=== PATIENT | female | born 1960 | race Caucasian/White ===

== ENCOUNTER 2018-11-05 18:26 | Emergency (ER) | payer MEDICARE, MEDICAID, SELFPAY ==
[2018-11-05] VITALS (7 sets, daily range): BP systolic 102–153; BP diastolic 59–81; PULSE 66–79; RESP 16; TEMP 36.6; O2SAT 93–96; BMI 34.4
--- NOTE | 2018-11-05 18:42 | EKG12_ITS ---
Test Reason : CHEST OTHER Blood Pressure : / mmHG Vent. Rate : 071 BPM Atrial Rate : 071 BPM P-R Int : 150 ms QRS Dur : 086 ms QT Int : 398 ms P-R-T Axes : 064 061 061 degrees QTc Int : 432 ms Normal sinus rhythm Normal ECG Confirmed by JULIA MILLER, JENNIFER ([id number]), metropolitan editor LAURYN SHEFFIELD ([id number]) on 11/09/2018 11:47:54 AM Referred By: JOHN Confirmed By:JENNIFER DUMONT MD
--- NOTE | 2018-11-05 18:43 | ED.VISSUMM ---
- ER Visit Summary Date of Service: 11/05/18 Chief Complaint: Chest pain and bilateral shoulder pain History of Present Illness: The patient is a 58 F who presents with bilateral shoulder and chest pain that has been getting worse over the past few days. Patient describes the pain is sharp. Patient states she has had pain in her right shoulder for a few weeks. Patient states that over the last few days she is developed pain in her chest and left shoulder. Patient also admits to pain in her neck. Patient states her pain is worse with movement and deep breathing. Patient states the pain improves somewhat with heating pad. Patient does admit to some paresthesias in her right arm. Patient also states she had some lightheadedness. Physical Examination: Vital signs are stable. Patient is afebrile. Patient is in no acute distress. Oral mucosa is pink and moist. Neck is supple. Trachea is midline. There is no JVD noted. Heart was regular rate and rhythm. Lungs are clear and equal bilateral. Abdomen is soft. Bowel sounds are normal. There is no tenderness. There is no guarding noted. Skin is warm dry. Cranial nerves II through XII are intact. There are no focal motor or sensory deficits noted. The remaining physical exam is within normal limits. Test Results: CBC and basic metabolic profile were obtained and were normal. Troponin was normal. EKG showed normal sinus rhythm with a rate of 71. There are no acute ST or T wave changes. Portable chest x-ray was normal. Emergency Department Course and Treatment: Patient was given aspirin and sublingual nitroglycerin here. Patient felt better on reevaluation. Patient has a HEART score of 2. Patient was advised that this is low risk for acute cardiac event. Patient was instructed to follow-up with her primary care physician as an outpatient. Patient understood and was agreeable with the plan. All questions were answered. Disposition: Discharge home Impression: Chest pain This note was generated with [employer] dictation software. It may contain incorrect words, spelling, and punctuation that were not noted in review of the chart prior to signing ED Disposition - Plan for ED Patient: Disposition: Home or Assisted Living Diagnosis: Chest pain of uncertain etiology Instructions: ED Chest Pain Atypical Unkn Cause Referrals: Sergio Tamayo DO [Primary Care Provider] - 3-5 Days
[2018-11-05] MEDS: Aspirin 81 MG TAB.CHEW 324 MG PO (18:58)
--- NOTE | 2018-11-05 19:10 | RAD_ITS ---
STUDY: X-RAY CHEST REASON FOR EXAM: Female, 58 years old. Shoulder and chest pain TECHNIQUE: Single AP portable view of the chest. COMPARISON: None. FINDINGS: The lungs are clear and expanded. There is no demonstrated pleural abnormality. Normal size heart. Normal mediastinum and rose. Normal visualized pulmonary arteries. Normal visualized aortic arch and descending thoracic aorta. Normal visualized thoracic spine. Normal visualized ribs, clavicles, and shoulders. There is no demonstrated abnormality of the visualized soft tissue structures of the upper abdomen. RAD/Chest PA and Lateral IMPRESSION: Normal x-ray examination of the chest. Electronically Signed: Matheus Fleming MD at 19:44 EDT , Service support ,
[2018-11-05 19:19] LABS: Absolute Lymphocyte Count 5.42 X10^3/ul (0.83-4.51); Absolute Neutrophil Count 6.5 X10^3/uL (2.0-7.7); Basophil# 0.03 X10^3/uL; Basophil% 0.2 % (0-1); Eosinophil# 0.26 X10^3/uL; Hemoglobin 14.6 g/dl (12.0-15.0); Lymphocyte # 5.42 X10^3/ul (4.0); Lymphocyte % 41.2 % (19-41); Mean Corp Hgb Conc 32.4 g/gl (32-36); Mean Corpuscular Hgb 29.5 pg (27.0-32.0); Mean Corpuscular Volume 90.9 fL (81-99); Mean Platelet Vol. 9.3 fl (6.2-12.0); Monocyte# 0.95 X10^3/uL; Monocyte% 7.2 % (0-10); Neutrophil # 6.47 X10^3/uL (2.7-7.7); Neutrophil % 49.2 % (47-70); Platelet Count 355 K/mm3 (150-450); RBC Distribution Width CV 13.6 % (11.6-14.6); RBC Distribution Width SD 44.1 fl (35.1-43.9); Red Blood Count 4.95 M/mm3 (4.2-5.4); White Blood Count 13.2 K/mm3 (4.4-11.0)
[2018-11-05 19:23] LABS: Differential Indicated SCAN CRITERIA MET; POSITIVE COUNT NO; POSITIVE DIFFERENTIAL YES; POSITIVE MORPHOLOGY NO
[2018-11-05 19:37] LABS: Anion Gap 7 (5-15); BUN 9 mg/dL (7-18); BUN/Creat Ratio 12.6 RATIO (10-20); Calcium,Total 9.4 mg/dL (8.5-10.1); Chloride 105 mmol/L (98-107); Creatinine, Serum 0.71 mg/dL (0.55-1.02); EST Glomerular Filtration Rate 90 mL/min (>60); Est Glom Filt Rate - Afr Amer 108 mL/min (>60); Estimated Creatinine Clearance 94.54 ml/min; Glucose 143 mg/dL (74-106); Potassium 3.8 mmol/L (3.5-5.1); Sodium Level 141 mmol/L (136-145)
[2018-11-05 20:01] LABS: Anisocytosis RARE; Platelet Estimate ADEQUATE (ADEQ)
[2018-11-05 20:02] LABS: Macrocytosis RARE
== END 2018-11-05 21:32 | disposition home or self-care (01) ==
PROVIDERS: Emergency Provider Emergency Medicine; Family Provider Family Medicine; PCP Family Medicine
DX: R07.9 Chest pain, unspecified (principal); Z72.0 Tobacco use
CPT/HCPCS: 71046; 80048; 84484; 85025; 93005; 99284; A4216

== ENCOUNTER 2020-05-31 12:39 | Emergency (ER) | payer MEDICARE, MEDICAID, SELFPAY ==
[2018-11-05 18:27] VITALS: BMI 34.4
[2020-05-31 12:40] VITALS: BP 181/85; PULSE 70; RESP 20; TEMP 37.2; O2SAT 98; BMI 38.2
[2020-05-31 12:45] VITALS: BP 173/90; PULSE 70; RESP 20; O2SAT 95
--- NOTE | 2020-05-31 13:00 | ED.VIS.FALL ---
History of Present Illness Chief Complaint: Fall Informant: Patient Occurred: Today - JPTA Fall from Height (ft): 4 Location: L shoulder, left ribs, left knee (mild there) Quality of Pain: Aching Current Severity: Severe Maximum Severity: Severe Worsened by: movement, breathing Relieved by: nothing Associated Symptoms: Inability to ambulate - couldn't get up due to pain in ribs, not legs. Negative for: Parasthesias, Weakness, Loss of function, Loss of consciousness, Amnesia Narrative: Patient said she was on her porch holding the leash of her 90 pound pitbull dog who suddenly chased after a squirrel pulled her down through the railing of her porch, she and the really both fell down to the ground around 4 feet. She fell onto her left side, injuring her shoulder and her ribs severely, sustaining a minor abrasion to her left knee she states it is a little sore but that is not bothering her. She denies any other pain or injury. No abdominal pain, vomiting, hip pain. She did not hit her head or lose consciousness. She is on no anticoagulants. - Past Medical History (1) Diabetes mellitus Status: Chronic (2) HTN (hypertension) Status: Chronic (3) Chronic low back pain Status: Chronic (4) Peripheral neuropathy Status: Chronic (5) Anxiety and depression Status: Chronic Past Medical History - Allergies and Home Meds Allergies/Adverse Reactions: Allergies acetaminophen [From Vicodin] Adverse Reaction (Verified 05/31/20 12:39) Nausea cortisone [Cortisone] Adverse Reaction (Verified 05/31/20 12:39) Other hydrocodone bitartrate [From Vicodin] Adverse Reaction (Verified 05/31/20 12:39) Nausea morphine Adverse Reaction (Verified 05/31/20 12:39) Nausea Primary Care Physician: Sergio Tamayo DO [Primary Care Provider] - Lives: With Family Smoking Status: Current every day smoker Review of Systems General: Denies: Chills, Fever, Sweats Eyes: Denies: Visual changes - bilaterally, Diplopia ENT: Denies: Rhinorrhea, Sore throat Cardiovascular: Reports: Chest pain - ribcage. Denies: Palpitations Respiratory: Reports: Dyspnea - due to left rib pain. Denies: Cough, Dyspnea on exertion Gastrointestinal: Denies: Abdominal pain, Nausea, Vomiting, Diarrhea, Melena, Hematochezia Genitourinary: Denies: Dysuria, Hematuria, Frequency Musculoskeletal: Reports: Back pain, Extremity Pain - L shoulder > left knee. Denies: Neck pain Skin: Reports: Abrasions. Denies: Rash Neurological: Denies: Headache, Weakness, Numbness Physical Exam Vital Signs/Narrative: Vital Signs Temp Pulse Resp BP Pulse Ox 05/31/20 12:45 70 20 H 173/90 H 95 05/31/20 12:40 99.0 F 70 20 H 181/85 H 98 Inital Vital Signs reviewed: Yes General: Well nourished, Well developed, Obese, - - NAD Head: Normocephalic, Atraumatic Eyes: Perrl, EOMI ENT: No trauma. Negative for: Nasal trauma Neck: Nontender, Full ROM, - - trachea midline. Negative for: Spinal Tenderness Cardiovascular: Regular rate, Regular rhythm, No murmurs Respiratory: No distress, CTA bilaterally, Chest tenderness - throughout left inframammary ribcage, except not tender at sternum or spine. no crepitance or deformity. equal BS bilaterally. Abdomen: Soft, Nontender, Nondistended, Normal bowel sounds Back: Nontender. Negative for: Spinal Tenderness Extremeties: Tender to palpation diffusely throughout the left proximal humerus, limited range of motion of the shoulder due to pain but no deformity. Nontender clavicle and acromioclavicular joint. Full range of motion throughout all other joints including the left lower extremity. Nontender bones of the left knee, no effusion. Pelvis stable to AP compression, no tenderness. Skin: Normal color, No rash, Trauma - Minor abrasion to the left lateral proximal knee area. No signs of any trauma to the left shoulder or chest wall clinically. Neurological: Alert, Oriented x3, Cranial nerves II-XII grossly intact, Normal Strength, Normal Sensation Psychological: - - Anxious mildly Diagnostic/Tx/Re-eval Clinical Impression(s) from Imaging Studies Ribs w/Chest X-Ray 05/31/20 13:25 IMPRESSION: RIBS: Nondisplaced fractures of the left sixth seventh and eighth ribs anterolaterally. CHEST: Normal x-ray examination of the chest. Electronically Signed: Lawson Solorzano, at 14:11 EDT , Service support , Shoulder X-Ray 05/31/20 13:25 IMPRESSION: Degenerative changes of the acromioclavicular joint. Calcific tendinitis. Electronically Signed: Lawson Solorzano, at 14:14 EDT , Service support , - Medical Decision Making Pain is improved after oxycodone 10 mg, pretreated with Zofran. X-rays confirm several rib fractures on the left side without pneumothorax or evidence of a pulmonary contusion. Left shoulder interpretation is as above. On reevaluation of patient, she cannot forward flex her upper arm or abduct very much at all before returning to neutral position and saying that her shoulder hurts too bad to move it. There is no suggestion of a deformity, and clinically I do not think she has a dislocation. She either just bruised or strained it, she could have injured the rotator cuff, or she has a small occult chip fracture at the glenoid or elsewhere. She does have some evidence of calcific tendinitis and the rotator which is not acute. She will be placed in a sling and given orthopedic follow-up if she does not have improvement after several days to a week. She is comfortable with that plan. We also discussed reasons to return and signs/symptoms of pneumothorax which she does not have at this time. ED Disposition - Plan for ED Patient: Disposition: Home or Assisted Living Diagnosis: Injury resulting from fall from height, Ribs, multiple fractures, Injury of left shoulder Instructions: ED Rib Fx, ED Shoulder Pain Uncertain Cause, ED Tendinitis Calcific Prescriptions: Oxycodone HCl/Acetaminophen [Percocet 5/325] 1 - 2 tablet PO Q6H PRN PRN 3 Days #18 tablet PRN Reason: Pain Transmission Status: Received by [id number] Referrals: Sergio Tamayo DO [Primary Care Provider] - 1 Week if not improving Morteza Lin DO [STAFF PHYSICIAN] - 1 Week if not improving (for shoulder)
[2020-05-31] MEDS: Ondansetron ODT 4 MG Tablet 8 MG PO (13:11)
[2020-05-31] MEDS: oxyCODONE 5 MG Tablet 10 MG PO (13:15)
--- NOTE | 2020-05-31 13:25 | RAD_ITS ---
STUDY: X-RAY - LEFT SHOULDER REASON FOR EXAM: Female, 59 years old. Pain due to fall TECHNIQUE: 2 view(s) of the shoulder. COMPARISON: None. FINDINGS: Normal glenohumeral articulation. There is degenerative arthrosis of the acromioclavicular joint without inferior osseous spur formation. Normal acromion. Normal humeral head and visualized proximal humerus. There is periarticular soft tissue calcification consistent with a calcific tendinitis. Normal visualized pulmonary apex. RAD/Shoulder min 2 Views IMPRESSION: Degenerative changes of the acromioclavicular joint. Calcific tendinitis. Electronically Signed: Lawson Solorzano, at 14:14 EDT , Service support ,
--- NOTE | 2020-05-31 13:25 | RAD_ITS ---
STUDY: X-RAY - UNILATERAL RIBS ( LEFT ) WITH CHEST REASON FOR EXAM: Female, 59 years old. pt. fell, pain is at mid left lateral ribs TECHNIQUE - RIBS: 4 view(s) of the ribs. TECHNIQUE - CHEST: Single PA view of the chest. COMPARISON: Comparison is made with prior chest radiograph dated 11/05/2018. FINDINGS - RIBS: Nondisplaced fractures of the anterolateral aspects of the left sixth seventh and eighth ribs anterolaterally. FINDINGS - CHEST: Scattered calcified granulomas. There is no demonstrated pleural abnormality. Normal size heart. Normal mediastinum and rose. Normal visualized pulmonary arteries. Normal visualized aortic arch and descending thoracic aorta. Normal visualized thoracic spine. Normal visualized ribs, clavicles, and shoulders. There is no demonstrated abnormality of the visualized soft tissue structures of the upper abdomen. RAD/Ribs Uni Min 3V w/PA Chest IMPRESSION: RIBS: Nondisplaced fractures of the left sixth seventh and eighth ribs anterolaterally. CHEST: Normal x-ray examination of the chest. Electronically Signed: Lawson Solorzano, at 14:11 EDT , Service support ,
== END 2020-05-31 15:24 | disposition home or self-care (01) ==
PROVIDERS: Emergency Provider Emergency Medicine; PCP Family Medicine
DX: S22.42XA Multiple fractures of ribs, left side, initial encounter for closed fracture (principal); S49.92XA Unspecified injury of left shoulder and upper arm, initial encounter; S80.212A Abrasion, left knee, initial encounter; W17.89XA Other fall from one level to another, initial encounter; Y93.9 Activity, unspecified; Y92.9 Unspecified place or not applicable; E66.9 Obesity, unspecified; I10 Essential (primary) hypertension; F41.9 Anxiety disorder, unspecified; F32.9 Major depressive disorder, single episode, unspecified; E11.42 Type 2 diabetes mellitus with diabetic polyneuropathy; M54.5 Low back pain; G89.29 Other chronic pain; Z79.4 Long term (current) use of insulin; Z79.82 Long term (current) use of aspirin; Z79.899 Other long term (current) drug therapy; F17.200 Nicotine dependence, unspecified, uncomplicated
CPT/HCPCS: 71101; 73030; 99251; 99283; 99285; A4216; G0463

== ENCOUNTER 2020-06-02 17:14 | Observation (INO) | payer MEDICARE, MEDICAID, SELFPAY ==
[2020-06-02] VITALS (8 sets, daily range): BP systolic 98–141; BP diastolic 61–79; PULSE 69–82; RESP 13–24; TEMP 36.4–37; O2SAT 88–95; BMI 34.8
--- NOTE | 2020-06-02 18:58 | EKG12_ITS ---
Test Reason : SOB Blood Pressure : / mmHG Vent. Rate : 069 BPM Atrial Rate : 069 BPM P-R Int : 156 ms QRS Dur : 090 ms QT Int : 404 ms P-R-T Axes : 045 046 056 degrees QTc Int : 432 ms Normal sinus rhythm Normal ECG Confirmed by VANESSA MILLER, ANGY ([id number]), associate editor LAURYN SHEFFIELD ([id number]) on 06/16/2020 9:46:42 A M Referred By: SHOAIB Confirmed By:AURELIO MENDEZ MD
[2020-06-02] MEDS: Ondansetron 4 MG/2 ML Vial IV (19:12)
[2020-06-02] MEDS: HYDROmorphone 1 MG/ML Syringe IV ×2 (19:12→22:34)
--- NOTE | 2020-06-02 19:20 | RAD_ITS ---
STUDY: X-RAY CHEST REASON FOR EXAM: Female, 59 years old. SOB. SEEN ON WED AND BROKE A COUPLE RIBS ON THE LEFT SIDE. HX COPD. TECHNIQUE: AP portable COMPARISON: 05/31/2020 FINDINGS: Less than optimal inspiratory effort is seen and there is mild interstitial thickening in the lower lobes... There are calcified granulomata in the lower lobes. There is no demonstrated pleural abnormality. Normal size heart. Normal mediastinum and rose. Normal visualized pulmonary arteries. Normal visualized aortic arch and descending thoracic aorta. Normal visualized thoracic spine. Normal visualized clavicles, and shoulders. There is no demonstrated abnormality of the visualized soft tissue structures of the upper abdomen. Previously noted left rib fractures are not visualized at this time. No significant change since prior study RAD/Chest 1 View (Portable) IMPRESSION: Mild chronic interstitial changes and old granulomatous disease No acute cardiopulmonary pathology. Electronically Signed: Victor Hugo Grace MD at 19:43 EDT , Service support ,
[2020-06-02 19:33] LABS: Absolute Neutrophil Count 8.8 X10^3/uL (2.0-7.7); Basophil# 0.06 X10^3/uL; Basophil% 0.5 % (0-1); Eosinophil# 0.14 X10^3/uL; Eosinophils% 1.1 % (0-5); Hematocrit 46.6 % (37-47); Hemoglobin 14.5 g/dL (12.0-15.0); Mean Corp Hgb Conc 31.1 g/dL (32-36); Mean Corpuscular Hgb 28.9 pg (27.0-32.0); Mean Platelet Vol. 9.6 fl (6.2-12.0); Monocyte# 1.47 X10^3/uL; NRBC Flagged by Analyzer 0 % (0-5); Neutrophil # 8.78 X10^3/uL (2.7-7.7); Neutrophil % 65.8 % (47-70); Platelet Count 402 K/mm3 (150-450); RBC Distribution Width SD 47.6 fl (35.1-43.9); Red Blood Count 5.01 M/mm3 (4.2-5.4); White Blood Count 13.3 K/mm3 (4.4-11.0)
[2020-06-02 19:50] LABS: Anion Gap 5 (5-15); BUN 22 mg/dL (7-18); BUN/Creat Ratio 17.6 RATIO (10-20); Calcium,Total 9.2 mg/dL (8.5-10.1); Chloride 101 mmol/L (98-107); Creatinine, Serum 1.25 mg/dL (0.55-1.02); EST Glomerular Filtration Rate 47 mL/min (>60); Est Glom Filt Rate - Afr Amer 56 mL/min (>60); Estimated Creatinine Clearance 54.83 ml/min; Glucose 216 mg/dL (74-106); Potassium 4.5 mmol/L (3.5-5.1); Sodium Level 133 mmol/L (136-145)
[2020-06-02] MEDS: Albuterol 2.5 MG/3 ML VIAL.NEB. INHALATION ×3 (20:34)
--- NOTE | 2020-06-02 21:24 | ED.DCSUM_ITS ---
- ER Visit Summary Date of Service: 06/02/20 Chief Complaint: Shortness of breath History of Present Illness: The patient is a 59 F presenting with shortness of breath, cough, chest wall pain. Patient felt 2 days ago. She was seen in the ED and found to have 3 fractured ribs on the left. These were nondisplaced. She presents with increasing shortness of breath and cough. She states her pain is not controlled with Percocet. Pulse ox 88% on room air on arrival. She has a history of COPD. She denies fever. Physical Examination: Vitals are stable. Patient is afebrile. Alert no acute distress. Pulse ox 88% on room air, 95% on 2 L. HEENT exam is unremarkable. Neck is supple. Lungs are diffuse wheezing bilaterally. Left chest wall tenderness with no crepitus Heart is regular rate and rhythm. Abdomen is soft nontender nondistended. Extremities are unremarkable. Skin is warm and dry. No focal neurologic deficit. Remainder of exam is unremarkable. Emergency Department Course and Treatment: Patient was given albuterol, Atrovent aerosols. She is given Dilaudid, Zofran IV. CBC shows white count 13.3. Chemistries show sodium 133, glucose 216, BUN 22, creatinine 1.25. Troponin is negative. EKG is sinus rate of 69 with no acute ischemic changes. Chest x-ray shows mild chronic interstitial changes and old granulomatous disease.No acute cardiopulmonary pathology. She was given Solu-Medrol IV. She continues to have wheezing on reevaluation. She was taken off oxygen and her pulse ox decreased. Discussed with hospitalist for admission. COVID is pending. Disposition: Admission Impression: COPD exacerbation, hypoxia, left sixth, seventh, eighth rib fractures This note was generated with [employer] dictation software. It may contain incorrect words, spelling, and punctuation that were not noted in review of the chart prior to signing ED Disposition - Plan for ED Patient: Referrals: Sergio Tamayo DO [Primary Care Provider] -
--- NOTE | 2020-06-02 22:20 | HP.PCM_ITS ---
Problem List (1) Rib fractures Status: Acute Qualifiers: Encounter type: subsequent encounter (2) Diabetes mellitus Status: Chronic (3) HTN (hypertension) Status: Chronic (4) Chronic low back pain Status: Chronic (5) Peripheral neuropathy Status: Chronic (6) Anxiety and depression Status: Chronic History of Present Illness Date of Admission: 06/02/20 Chief Complaint: shortness of breath The patient is a 59 year old F presents with shortness of breath. Patient had fallen after getting tripped by her dog into a railing on her left side. This happened on the and presented to the emergency room. She was found to have rib fractures and received Percocet and discharged home. Patient is having very extreme pain and unable to breathe adequately. She presented to the emergency room and was noted to be hypoxic into the 80% range. Was placed on oxygen and sats did improve. Patient did require hydromorphone to help with her rib pain. Patient states that it is difficult for her to take in a deep breath due to the pain in her ribs. [] Past Medical History Past Medical History (Chronic Problems): Chronic Problems Diabetes mellitus (Chronic) HTN (hypertension) (Chronic) Chronic low back pain (Chronic) Peripheral neuropathy (Chronic) Anxiety and depression (Chronic) Allergies morphine Allergy (Verified 06/02/20 19:17) Hives acetaminophen [From Vicodin] Adverse Reaction (Verified 06/02/20 17:17) Nausea cortisone [Cortisone] Adverse Reaction (Verified 06/02/20 17:17) Other hydrocodone bitartrate [From Vicodin] Adverse Reaction (Verified 06/02/20 17:17) Nausea Home Medications: Ambulatory Orders Medication Instructions Recorded Albuterol Sulfate [Proventil Hfa] 6.7 gm IH DAILY 10/25/13 Aspirin [Aspirin, Baby] 81 mg PO DAILY@0800 10/25/13 Atenolol [Tenormin] 25 mg PO DAILY 10/25/13 Duloxetine Hcl [Cymbalta] 30 mg PO BID 10/25/13 Omeprazole [Prilosec] 40 mg PO DAILY 10/25/13 Oxycodone CR [Oxycontin] 10 mg PO Q12H 10/25/13 Saxagliptin HCl/Metformin HCl 1 each PO DAILY 10/25/13 [Kombiglyze Xr 5-1,000 mg Tab] Gabapentin 800 mg PO TID 05/31/20 Glipizide 5 mg PO BID 05/31/20 Insulin Glargine,Hum.rec.anlog 40 unit SQ QHS 05/31/20 [Toujeo Solostar] Lisinopril 5 mg PO DAILY 05/31/20 Ondansetron [Zofran Odt] 4 mg PO Q8H PRN PRN #10 tab 05/31/20 Oxycodone HCl/Acetaminophen 1 - 2 tab PO Q6H PRN PRN 3 Days 05/31/20 [Percocet 5/325] #18 tab Simvastatin [Zocor] 20 mg PO QHS 05/31/20 Sitagliptin Phos/Metformin HCl 1 tab PO DAILY 05/31/20 [Janumet Xr 50-1,000 mg Tablet] Smoking Status: Current every day smoker Tobacco Use: Cigarettes - *Family History Maternal History Items: - - No CAD Review of Systems Constitutional: Denies: Anorexia, Chills, Fever, Malaise, Weakness Eyes: Denies: Blurred vision, Double vision HEENT: Denies: Head Aches, Sinus Congestion, Sinus Drainage Cardiovascular: Denies: Chest Pain, Edema, Palpitations Respiratory: Reports: Shortness of Breath. Denies: Cough Gastrointestinal: Denies: Abdominal Pain, Nausea, Vomiting Genitourinary: Denies: Dysuria Musculoskeletal: Reports: - - left sided rib pain. Denies: Joint Pain, Joint Tenderness Neurological: Denies: Balance problems Hematologic/ Lymphatic: Denies: Easy Bruising, Easy Bleeding, Hx of blood clot Comment: All review of systems were negative except as mentioned above in the history of present illness and the other review of systems. VTE Information - Inpt Only VTE Present on Admission: No VTE Mechan Device Prophylaxis: None VTE Pharm Prophylaxis ordered?: No Reason prophylaxis not ordered:: Treatment Not Indicated - Physical Exam Vitals/I&O's: Vital Signs Temp Pulse Resp BP Pulse Ox 37.0 C 71 20 H 117/69 95 06/02/20 18:39 06/02/20 20:50 06/02/20 20:50 06/02/20 20:50 06/02/20 20:50 Oxygen Flow Rate (L/min) 2 Oxygen Delivery Method Nasal Cannula Weight: 113.398 kg Body Mass Index (BMI) 34.8 General: Alert, Cooperative, No apparent distress HEENT: Atraumatic, Normocephalic Oral: Moist Mucosa, No Gingival or Mucosal Lesions/ Ulcerations Neck: No Nodes, Thyroid Normal Size and Texture Lungs: Diminished - Due to decreased inspiratory effort., - - Coarse breath sounds Cardiovascular: Regular rate, Regular Rhythm, Normal S1, Normal S2 Abdomen: Bowel Sounds Present, Soft, Non Tender, Non-Distended, Obese Extremities: No edema, No Calf Tenderness Psych/Mental Status: Appropriate, Anxious Laboratory Results 06/02/20 18:40: WBC 13.3 H, RBC 5.01, Hgb 14.5, Hct 46.6, MCV 93.0, MCH 28.9, MCHC 31.1 L, RDW Std Deviation 47.6 H, RDW Coeff of Jesse 14.0, Plt Count 402, MPV 9.6, Immature Gran % (Auto) 0.600, Neut % (Auto) 65.8, Lymph % (Auto) 21.0, Pierce % (Auto) 11.0 H, Eos % (Auto) 1.1, Baso % (Auto) 0.5, Absolute Neuts (auto) 8.8 H, Absolute Lymphs (auto) 2.80, Nucleated RBC % 0 06/02/20 18:40: Sodium 133 L, Potassium 4.5, Chloride 101, Carbon Dioxide 27.0, Anion Gap 5, BUN 22 H, Creatinine 1.25 H, Estim Creat Clear Calc 54.83, Est GFR (MDRD) Af Amer 56 L, Est GFR (MDRD) Non-Af 47 L, BUN/Creatinine Ratio 17.6, Glucose 216 H, Calcium 9.2, Troponin I < 0.015 06/02/20 21:20: COVID-19 (LISA) Pending Clinical Impression(s) from Imaging Studies Chest X-Ray 06/02/20 19:20 IMPRESSION: Mild chronic interstitial changes and old granulomatous disease No acute cardiopulmonary pathology. Electronically Signed: Victor Hugo Grace MD at 19:43 EDT , Service support , Assessment/Plan All Active Problems Rib fractures (Acute) 1. Acute hypoxic respiratory insufficiency: Secondary to splinting due to the rib fractures. I do not suspect a COPD exacerbation but her underlying COPD is currently complicates her respiratory status. Will add chest physiotherapy, incentive spirometer. Check an ambulatory pulse ox prior to discharge. 2. Left-sided rib fractures: Status post fall the other day. Patient already on OxyContin at baseline. Will add PRN oxycodone plus acetaminophen ketorolac. Patient advised that healing will take place over several weeks. 3. Diabetes mellitus type 2: Continue with her home medications plus sliding scale insulin. 4. Disposition: Tentative plan at this time barring any Setbacks, would be patient to be evaluated on the , have an amatory pulse ox discharged with or without oxygen. 5. VTE prophylaxis: Low risk as patient is observation status. OBSV E&M: [id number] Initial observation care L2
[2020-06-02] MEDS: MethylPREDNISolone 125 MG/2 ML Vial IV (22:33)
[2020-06-02 23:57] LABS: Probe Check PASS; Specimen Processing Control PASS
[2020-06-03] VITALS (7 sets, daily range): BP systolic 101–138; BP diastolic 61–70; PULSE 51–68; RESP 16–24; TEMP 36.4–36.8; O2SAT 89–96
--- NOTE | 2020-06-03 00:58 | NURSING ---
PT STATES SHE DOES NOT WANT INSULIN/DIABETIC MEDICATIONS AT THIS TIME SINCE SHE IS NOT EATING WELL.
[2020-06-03 01:31] LABS: Bedside Glucose 266 mg/dL (70-110)
[2020-06-03] MEDS: 0.9% Saline Lock 10 ML Syringe IV ×2 (01:46→14:27)
[2020-06-03] MEDS: Ketorolac 15 MG/ML Vial IM (01:47)
[2020-06-03] MEDS: Albuterol 2.5 MG/3 ML VIAL.NEB. INHALATION (03:40)
[2020-06-03] MEDS: Gabapentin 800 MG Tablet PO ×2 (06:50→14:28)
[2020-06-03] MEDS: Insulin Lispro 100 UNIT/ML INSULN.PEN SC ×2 (06:54→11:56)
[2020-06-03] MEDS: glipiZIDE 5 MG Tablet PO (09:10)
[2020-06-03] MEDS: DULoxetine Hcl 30 MG Capsule PO (09:11)
[2020-06-03] MEDS: Atenolol 25 MG Tablet PO (09:11)
[2020-06-03] MEDS: Lisinopril 5 MG Tablet PO (09:11)
[2020-06-03] MEDS: metFORMIN (XR) 500 MG Tablet 1000 MG PO (09:11)
[2020-06-03] MEDS: Aspirin 81 MG TAB.CHEW PO (09:11)
[2020-06-03] MEDS: Pantoprazole Sodium 40 MG Tablet PO (09:11)
[2020-06-03] MEDS: LINAGLIPTIN 5 MG TABLET PO (09:12)
[2020-06-03] MEDS: oxyCODONE HCl Cr 10 MG Tablet PO (09:12)
[2020-06-03 10:11] LABS: Bedside Glucose 318 mg/dL (70-110)
[2020-06-03 12:10] LABS: Bedside Glucose 330 mg/dL (70-110)
[2020-06-03] MEDS: MethylPREDNISolone 125 MG/2 ML Vial 60 MG IV (14:27)
[2020-06-03] MEDS: Magnesium Citrate 300 ML 150 ML PO (14:27)
[2020-06-03] MEDS: oxyCODONE 5 MG Tablet 10 MG PO (14:32)
[2020-06-03] MEDS: Acetaminophen 325 MG Tablet 650 MG PO (14:32)
--- NOTE | 2020-06-03 16:28 | PCM.DC ---
- Discharge Diagnoses Current Active Problems: Current Active and Chronic Problems Diabetes mellitus (Chronic) HTN (hypertension) (Chronic) Chronic low back pain (Chronic) Peripheral neuropathy (Chronic) Anxiety and depression (Chronic) Rib fractures (Acute) You will use the following diet at home:: Calorie/Carbohydrate Controlled (specify 1200, 1400, etc) - 1800 alycia Your food should be the consistency of: Regular Your liquids should be the consistency of: Regular/Thin Discharge Activity: Return to Normal Activity Additional Instructions: CUT DOWN OR STOP SMOKING. USE VENTOLIN HFA INHALER 2 PUFFS FOUR TIMES A DAY FOR THE NEXT WEEK, THEN EVERY 6 HOURS NEEEDED AFTER THAT Allergies/Adverse Reactions: Allergies morphine Allergy (Verified 06/02/20 19:17) Hives acetaminophen [From Vicodin] Adverse Reaction (Verified 06/02/20 17:17) Nausea cortisone [Cortisone] Adverse Reaction (Verified 06/02/20 17:17) Other hydrocodone bitartrate [From Vicodin] Adverse Reaction (Verified 06/02/20 17:17) Nausea Medications to take at Discharge Albuterol Sulfate [Proventil Hfa] 6.7 gm IH DAILY 10/25/13 Aspirin [Aspirin, Baby] 81 mg PO DAILY@0800 10/25/13 Atenolol [Tenormin (beta megan)] 25 mg PO DAILY 10/25/13 Duloxetine Hcl [Cymbalta] 30 mg PO BID 10/25/13 Omeprazole [Prilosec] 40 mg PO DAILY 10/25/13 Saxagliptin HCl/Metformin HCl [Kombiglyze Xr 5-1,000 mg Tab] 1 each PO DAILY 10/25/13 Gabapentin 800 mg PO TID 05/31/20 Glipizide 5 mg PO BID 05/31/20 Insulin Glargine,Hum.rec.anlog [Kaylan Solostar] 40 unit SQ QHS 05/31/20 Lisinopril 5 mg PO DAILY 05/31/20 Ondansetron [Zofran Odt] 4 mg PO Q8H PRN PRN #10 tab 05/31/20 Simvastatin [Zocor] 20 mg PO QHS 05/31/20 Sitagliptin Phos/Metformin HCl [Janumet Xr 50-1,000 mg Tablet] 1 tab PO DAILY 05/31/20 Acetaminophen [Tylenol Tablet] 650 mg PO Q6H PRN PRN tab 06/03/20 Oxycodone [Oxyir] 10 mg PO Q4H PRN PRN 5 Days #30 tablet 06/03/20 predniSONE tablet 20 mg PO UD #11 tab 06/03/20 The following prescriptions were given: Oxycodone [Oxyir] 10 mg PO Q4H PRN PRN 5 Days #30 tablet PRN Reason: Pain Score 6-10 Transmission Status: [id number] predniSONE tablet 20 mg PO UD #11 tab Transmission Status: Pending to [id number] Primary Care Physician: Sergio Tamayo DO [Primary Care Provider] - Please follow up with your Primary Care Physician in: in 2 weeks Test Results: Test results from this visit will be discussed in further detail at your follow-up appointment, if applicable.
--- NOTE | 2020-06-03 16:32 | PCM.DC.SUM ---
Discharge Date and Diagnosis - Problem List Patient Problems: Active and Suspected Problems Rib fractures (Acute) Date of Admission: 06/02/20 Date of Discharge: 06/03/20 - Primary Discharge Diagnosis Acute Problems: Active Problems #1 multiple rib fractures with uncontrolled pain #2 hypoxemia secondary to exacerbation of COPD with multiple rib fractures #3 exacerbation of COPD #4 type 2 diabetes - Secondary Discharge Diagnosis Chronic Problems: Chronic Problems Diabetes mellitus (Chronic) HTN (hypertension) (Chronic) Chronic low back pain (Chronic) Peripheral neuropathy (Chronic) Anxiety and depression (Chronic) Hospital Course and Treatment Operations: None Procedures: None Summary of Care Provided: The patient is a 59 year old F patient was seen in the emergency room at [facility] with a chief complaint of uncontrolled rib pain secondary to a fall 2 days previous with 3 fractured ribs on the left, shortness of breath, and cough. Patient is taking Percocet at home but she states her pain is not controlled. On examination, patient's pulse ox was noted to be 89% on room air, on auscultation of the lungs there was noted to be severe wheezing, patient was given an albuterol and Atrovent aerosol and Dilaudid for pain, labs included a CBC which showed white blood cell count of 13.3, chemistries were remarkable for sodium of 133, glucose of 216, BUN of 22, and creatinine of 1.25. Chest x-ray showed mild chronic interstitial changes but no acute pulmonary finding. Patient was given IV Solu-Medrol, she was taken off oxygen and her pulse ox again decreased. Covid test was negative. Patient was placed in observation status on MedSurg 3, she was given IV corticosteroids and aerosol treatments, patient's wheezing improved and she was able to be weaned off oxygen. Her pain was controlled with narcotics. On 06/03/2020, patient was seen and examined: On examination she appeared in good health and spirits, she does not appear to be in any distress. Vital signs as documented. Skin warm and dry and without overt rashes. Neck without JVD, thyroid appears normal, trachea is midline, neck is supple. Lungs-expiratory wheezes were noted mostly on the right, normal air movement was noted. Heart exam notable for regular rhythm, normal sounds and absence of murmurs, rubs or gallops. Abdomen unremarkable and without evidence of organomegaly, masses, or abdominal aortic enlargement, bowel sounds are present in all 4 quadrants, no abdominal tenderness was noted. Extremities nonedematous, no cyanosis was noted, no clubbing was noted. Neuro: Cranial nerves II through XII are grossly intact, no focal motor deficits were noted, sensation to light touch and pinprick is intact, motor exam 5/5 throughout. Psych: Patient is alert and oriented x3, she does not appear anxious or depressed, she does not appear agitated. On 06/03/2020, patient was seen and examined and felt to be in stable condition for discharge home Patient Problems: Active and Suspected Problems Rib fractures (Acute) - Physical Exam Vitals/I&O's: Vital Signs Temp Pulse Resp BP Pulse Ox 97.8 F 67 16 120/61 89 06/03/20 09:10 06/03/20 09:10 06/03/20 09:10 06/03/20 09:10 06/03/20 16:03 Oxygen Flow Rate (L/min) 3 Oxygen Delivery Method Room Air Weight: 119.1 kg Body Mass Index (BMI) 36.6 Intake and Output for Last 24 Hours 06/01/20 06/02/20 06/03/20 23:59 23:59 23:59 Intake Total 630 / 630 Output Total 0 / 0 Balance 630 / 630 Laboratory Results 06/02/20 18:40: WBC 13.3 H, RBC 5.01, Hgb 14.5, Hct 46.6, MCV 93.0, MCH 28.9, MCHC 31.1 L, RDW Std Deviation 47.6 H, RDW Coeff of Jesse 14.0, Plt Count 402, MPV 9.6, Immature Gran % (Auto) 0.600, Neut % (Auto) 65.8, Lymph % (Auto) 21.0, Polk % (Auto) 11.0 H, Eos % (Auto) 1.1, Baso % (Auto) 0.5, Absolute Neuts (auto) 8.8 H, Absolute Lymphs (auto) 2.80, Nucleated RBC % 0 06/02/20 18:40: Sodium 133 L, Potassium 4.5, Chloride 101, Carbon Dioxide 27.0, Anion Gap 5, BUN 22 H, Creatinine 1.25 H, Estim Creat Clear Calc 54.83, Est GFR (MDRD) Af Amer 56 L, Est GFR (MDRD) Non-Af 47 L, BUN/Creatinine Ratio 17.6, Glucose 216 H, Calcium 9.2, Troponin I < 0.015 06/02/20 21:20: COVID-19 (LISA) Not Detected 06/03/20 01:27: POC Glucose 266 H 06/03/20 06:49: POC Glucose 318 H 06/03/20 11:52: POC Glucose 330 H Current Medications Acetaminophen (Acetaminophen 325 Mg Tablet) 650 mg PO Q6H PRN PRN PRN Reason: Pain Score 1-10/Temp > 100.7 F Last Admin: 06/03/20 14:32 Dose: 650 mg Documented by: Albuterol Sulfate (Albuterol 2.5 Mg/3 Ml Vial.Neb.) 2.5 mg INHALATION Q2H PRN PRN PRN Reason: WHEEZING Last Admin: 06/03/20 03:40 Dose: 2.5 mg Documented by: Aspirin (Aspirin 81 Mg Tab.Chew) 81 mg PO DAILY@0800 [facility] Last Admin: 06/03/20 09:11 Dose: 81 mg Documented by: Atenolol (Atenolol 25 Mg Tablet) 25 mg PO DAILY [facility] Last Admin: 06/03/20 09:11 Dose: 25 mg Documented by: Atorvastatin Calcium (Atorvastatin Calcium 10 Mg Tablet) 10 mg PO QHS [facility] Dextrose (Dextrose 50%-Water 25 Gm/50 Ml Disp.Syrin) 0 gm IV X1 PRN; Protocol PRN Reason: Hypoglycemia Duloxetine HCl (Duloxetine Hcl 30 Mg Capsule) 30 mg PO BID [facility] Last Admin: 06/03/20 09:11 Dose: 30 mg Documented by: Gabapentin (Gabapentin 800 Mg Tablet) 800 mg PO TID [facility] Last Admin: 06/03/20 14:28 Dose: 800 mg Documented by: Glipizide (Glipizide 5 Mg Tablet) 5 mg PO BIDCM [facility] Last Admin: 06/03/20 09:10 Dose: 5 mg Documented by: Glucagon (Glucagon 1 Mg/Ml Syringe) 1 mg IM .X1 PRN PRN Reason: Hypoglycemia Sodium Chloride () 250 mls @ 15 mls/hr IV .[id number] PRN PRN Reason: Saline Flush Sodium Chloride () 250 mls @ 15 mls/hr IV .[id number] PRN PRN Reason: Additional IVPB Infusion Insulin Glargine (Insulin Glargine 100 Units/Ml Pen) 40 units SC QHS [facility] Insulin Human Lispro (Insulin Lispro 100 Unit/Ml Insuln.Pen) 0 unit SC TIDAC [facility]; Protocol Last Admin: 06/03/20 11:56 Dose: 5 units Documented by: Ketorolac Tromethamine (Ketorolac 15 Mg/Ml Vial) 15 mg IM Q6H PRN PRN PRN Reason: Pain Score 1-10 Stop: 06/08/20 00:45 Last Admin: 06/03/20 01:47 Dose: 15 mg Documented by: Linagliptin ([facility] 5 Mg Tablet) [facility] Last Admin: 06/03/20 09:12 Dose: 5 mg Documented by: Lisinopril (Lisinopril 5 Mg Tablet) 5 mg PO DAILY [facility] Last Admin: 06/03/20 09:11 Dose: 5 mg Documented by: Metformin HCl (Metformin (Xr) 500 Mg Tablet) [facility] Last Admin: 06/03/20 09:11 Dose: 1,000 mg Documented by: Ondansetron HCl (Ondansetron Odt 4 Mg Tablet) 4 mg PO Q8H PRN PRN PRN Reason: NAUSEA Ondansetron HCl (Ondansetron 4 Mg/2 Ml Vial) 4 mg IV Q8H PRN PRN PRN Reason: NAUSEA/VOMITING Oxycodone HCl (Oxycodone Hcl Cr 10 Mg Tablet) 10 mg PO Q12 [facility] Last Admin: 06/03/20 09:12 Dose: 10 mg Documented by: Oxycodone HCl (Oxycodone 5 Mg Tablet) 5 mg PO Q4H PRN PRN PRN Reason: Pain Score 4-5 Oxycodone HCl (Oxycodone 5 Mg Tablet) 10 mg PO Q4H PRN PRN PRN Reason: Pain Score 6-10 Last Admin: 06/03/20 14:32 Dose: 10 mg Documented by: Pantoprazole Sodium (Pantoprazole Sodium 40 Mg Tablet) 40 mg PO DAILY [facility] Last Admin: 06/03/20 09:11 Dose: 40 mg Documented by: Sodium Chloride (0.9% Saline Lock 10 Ml Syringe) 10 - 40 ml IV UD PRN PRN Reason: SALINE FLUSH Last Admin: 06/03/20 14:27 Dose: 10 ml Documented by: Discharge Activity: Return to Normal Activity Home Medications: Medications to take at Discharge Albuterol Sulfate [Proventil Hfa] 6.7 gm IH DAILY 10/25/13 Aspirin [Aspirin, Baby] 81 mg PO DAILY@0800 10/25/13 Atenolol [Tenormin (beta megan)] 25 mg PO DAILY 10/25/13 Duloxetine Hcl [Cymbalta] 30 mg PO BID 10/25/13 Omeprazole [Prilosec] 40 mg PO DAILY 10/25/13 Saxagliptin HCl/Metformin HCl [Kombiglyze Xr 5-1,000 mg Tab] 1 each PO DAILY 10/25/13 Gabapentin 800 mg PO TID 05/31/20 Glipizide 5 mg PO BID 05/31/20 Insulin Glargine,Hum.rec.anlog [Toujeo Solostar] 40 unit SQ QHS 05/31/20 Lisinopril 5 mg PO DAILY 05/31/20 Ondansetron [Zofran Odt] 4 mg PO Q8H PRN PRN #10 tab 05/31/20 Simvastatin [Zocor] 20 mg PO QHS 05/31/20 Sitagliptin Phos/Metformin HCl [Janumet Xr 50-1,000 mg Tablet] 1 tab PO DAILY 05/31/20 Acetaminophen [Tylenol Tablet] 650 mg PO Q6H PRN PRN tab 06/03/20 Oxycodone [Oxyir] 10 mg PO Q4H PRN PRN 5 Days #30 tab 06/03/20 predniSONE tablet 20 mg PO UD #11 tab 06/03/20 Following Prescriptions Were Given to Patient: Oxycodone [Oxyir] 10 mg PO Q4H PRN PRN 5 Days #30 tab PRN Reason: Pain Score 6-10 Transmission Status: Received by [facility]/pharmacy #[id number] predniSONE tablet 20 mg PO UD #11 tab Transmission Status: Received by [facility]/pharmacy #[id number] Primary Care Physician: Sergio Tamayo DO [Primary Care Provider] - Please follow up with your Primary Care Physician in: in 2 weeks Disposition: Home Minutes spent on discharge:: 30 Patient Condition:: Stable Medical Necessity - Tobacco Use Smoking Status: Current every day smoker Tobacco Use: Cigarettes Meaningful Use Info Meaningful Use Diagnoses (Choose all that apply): None applicable OBSV E&M: 70238 Observation care discharge
== END 2020-06-03 17:42 | disposition home or self-care (01) ==
LOC: ED 19:26
PROVIDERS: Emergency Provider Emergency Medicine; PCP Family Medicine
DX: S22.42XA Multiple fractures of ribs, left side, initial encounter for closed fracture (principal); W01.0XXA Fall on same level from slipping, tripping and stumbling without subsequent striking against object, initial encounter; Y93.9 Activity, unspecified; Y92.9 Unspecified place or not applicable; Y99.9 Unspecified external cause status; J44.1 Chronic obstructive pulmonary disease with (acute) exacerbation; R09.02 Hypoxemia; E11.42 Type 2 diabetes mellitus with diabetic polyneuropathy; I10 Essential (primary) hypertension; M54.5 Low back pain; G89.29 Other chronic pain; F17.210 Nicotine dependence, cigarettes, uncomplicated; Z23 Encounter for immunization; Z79.4 Long term (current) use of insulin; Z79.82 Long term (current) use of aspirin; Z79.899 Other long term (current) drug therapy
CPT/HCPCS: 71045; 80048; 82962; 84484; 85025; 87635; 93005; 94640; 94667; 94668; 94760; 96372; 96374; 96375; 96376; 97802; 99218; 99251; 99283; 99285; 99406; G0008; 90686; A4216; G0378; G0463; J2405; U0003

== ENCOUNTER 2020-08-23 17:30 | Outpatient (RCR) | payer MEDICARE, MEDICAID, SELFPAY ==
[2020-06-26 08:11] VITALS: BMI 48.8
--- NOTE | 2020-07-07 08:57 | HP.PTEVAL ---
Patient's Visit Information PATTY BOLDEN is a 60 year old F referred to Physical Therapy by Dr. Jose Maharaj MD with a diagnosis of L shoulder pain. Date of Evaluation: 07/07/20 Physical Therapist: Freddie Fall, PT, ATC - Visit Plan Frequency: 2-3x /Week Duration: 4-6 Weeks Plan: L shoulder PROM and mobs, overhead pulleys, rot cuff strengthening, scap stab ex's, UBE, and HEP - Subjective DOI: 05/31/20. Pt reports she was walking her dog when he pulled her to the ground. Pt reports she injured her L shoulder and fractured 2 ribs. Pt reports she had xrays at first which showed no fractures to the L shoulder. However, she had recent xrays that showed she did have a fracture to the L shoulder which is now healed. Pt reports she has significant difficulty with overhead reaching which limits her from getting dressed at this time. Pt reports she is here to hopefully avoid having to have surgery in the future. Pt notes sleep difficulty secondary to pain. Pt notes she has to sleep on her recliner at this time. Pt denies tingling or numbness at this time. 5/10 pain at rest, 9/10 pain at worst. - Pain L shoulder Pain Intensity (Out of 10): 5 Pain Intensity Range: 9 - Objective Neuro: B UE sensation is WNL to light touch. B bicepital reflex= 1/3. Palpation: Pt is very sore along the distribution of the supraspinatus tendon. No obvious deformity. ROM: R shoulder flex= 155, abd= 135, Er= 35. L shoulder flex= 60, abd= 40, ER= 10. MMT: R shoulder 5/5 throughout. L shoulder is 2-/5. Special tests: pos empty can test - Goals Goal 1:: Decrease L shoulder pain x 50% to aid with sleep Goal Time Frame: 4-6 Weeks Goal 2:: Increase L shoulder flex and abd ROM x 50 degrees to aid with overhead lifting Goal Time Frame: 4-6 Weeks Goal 3:: Increase L shoulder strength x 1 grade to aid with IADL's Goal Time Frame: 4-6 Weeks Goal 4:: I with HEP Goal Time Frame: 4-6 Weeks - Rehabilitation Potential Physical Therapy Diagnosis: L shoulder pain, weakness, and limited ROM secondary to L shoulder pathology Rehabilitation Potential: Good - Anticipated Interventions Patient/Client Instruction: Educate patient on: Condition, Plan of Care For the Purpose of:: To improve self management Therapeutic Exercise to Include: Strength training, Endurance training, Flexibilty training, Passive ROM, Active ROM, Scapular Strength/Stabilization For the Purpose of:: To decrease pain, To increase ROM, To improve muscle performance and motor function Cryotherapy (ice pack, ice massage): Yes For the Purpose of:: To decrease pain Thank you for the opportunity to evaluate your patient. For Medicare and Medicare HMO plans, please review the plan of care and approve it. It will need to be FAXED BACK to us at [phone] for Medicare purposes. For Medicare only, by signing this I certify the plan of care. Please let me know if there are questions or concerns regarding this plan of care. Physician Signature: Date:
--- NOTE | 2020-11-16 12:04 | HP.PT.NRP ---
PATTY BOLDEN was seen in my office for initial evaluation on 07/07/20. The following Plan of Care was established for this patient: Initial Frequency: 2-3x /Week Initial Duration: 4-6 Weeks Patient/Client Instruction: Educate patient on: Condition, Plan of Care For the Purpose of:: To improve self management Therapeutic Exercise to Include: Strength training, Endurance training, Flexibilty training, Passive ROM, Active ROM, Scapular Strength/Stabilization For the Purpose of:: To decrease pain, To increase ROM, To improve muscle performance and motor function Cryotherapy (ice pack, ice massage): Yes For the Purpose of:: To decrease pain This patient was last seen in our office . Pertinent comments regarding their Physical therapy will appear below: Pt was treated for 7 PT visits for L shoulder pain through the date of 08/23/20. Pt has not returned through todays date and is discontinued at this time. At this point I will be discontinuing this patient from physical therapy. I would be happy to see this patient again in the future if found appropriate by the physician. Thank you! Freddie Fall, PT, ATC
== END 2020-08-23 19:00 | disposition home or self-care (01) ==
LOC: PT 17:30
PROVIDERS: PCP Family Medicine; Referring Provider Orthopaedic Surgery Hand Surgery; Visit Provider Orthopaedic Surgery Hand Surgery
DX: S42.252D Displaced fracture of greater tuberosity of left humerus, subsequent encounter for fracture with routine healing (principal)
CPT/HCPCS: 97014; 97110; 97161; G0283

== ENCOUNTER 2021-07-03 16:27 | Outpatient (CLI) | payer MEDICARE, MEDICAID, SELFPAY ==
[2021-07-03] MEDS: 0.9% Saline Lock 10 ML Syringe IV (16:44)
[2021-07-03 16:45] VITALS: BP 122/71; PULSE 74; RESP 20; TEMP 36.9; O2SAT 99; BMI 35.9
[2021-07-03 17:21] VITALS: BP 111/57; PULSE 62; RESP 16; TEMP 37.2; O2SAT 98
[2021-07-03 18:21] VITALS: BP 100/71; PULSE 64; RESP 16; TEMP 36.9; O2SAT 96
== END 2021-07-03 18:30 | disposition home or self-care (01) ==
LOC: MS3OUT 16:30 → MS3 16:31
PROVIDERS: PCP Family Medicine; Referring Provider Nurse Practitioner Adult Health; Visit Provider Nurse Practitioner Adult Health
DX: Z23 Encounter for immunization (principal); U07.1 COVID-19
CPT/HCPCS: J7050; M0245; Q0245; A4216

== ENCOUNTER 2024-03-23 15:44 | Emergency (ER) | payer MEDICARE, MEDICAID, SELFPAY ==
[2024-03-23 15:45] VITALS: BP 109/67; PULSE 58; RESP 16; TEMP 36.4; O2SAT 97; BMI 33.3
--- NOTE | 2024-03-23 16:00 | EKG12_ITS ---
Test Reason : FALL Blood Pressure : / mmHG Vent. Rate : 060 BPM Atrial Rate : 060 BPM P-R Int : 154 ms QRS Dur : 078 ms QT Int : 440 ms P-R-T Axes : 048 065 059 degrees QTc Int : 440 ms Normal sinus rhythm Normal ECG When compared with ECG of 02-JUN-2020 19:15, No significant change was found Confirmed by JULIA MILLER, JENNIFER ([id number]), newspaper photo editor LAURYN SHEFFIELD ([id number]) on 03/30/2024 11:34:14 AM Referred By: Confirmed By:JENNIFER DUMONT MD
[2024-03-23 16:01] VITALS: O2SAT 96
--- NOTE | 2024-03-23 16:01 | RAD_ITS ---
INDICATION: Injury/Pain EXAMINATION/TECHNIQUE: X-RAY - LEFT XR Wrist Min 3 Views COMPARISON: None. FINDINGS: Acute comminuted and and mildly displaced distal radial impaction fracture. Acute ulnar styloid avulsion fracture. No blastic or lytic lesions. No degenerative changes are seen. Soft tissue swelling of the wrist. RAD/Wrist min 3 Views IMPRESSION: Acute comminuted and and mildly displaced distal radial impaction fracture. Acute ulnar styloid avulsion fracture. Electronically Signed: Jason Dietrich MD at 17:40 EDT ,
--- NOTE | 2024-03-23 16:01 | RAD_ITS ---
INDICATION: Injury/Pain EXAMINATION/TECHNIQUE: X-RAY - LEFT XR Hip Unilateral with Pelvis when performed; 2-3 Views COMPARISON: None. FINDINGS: No acute fracture or malalignment. No blastic or lytic lesions. Mild degenerative changes of the bilateral hips. The soft tissues are unremarkable. RAD/HIP, UNI W/ Pelvis 2-3 Views IMPRESSION: No acute radiographic abnormalities. Electronically Signed: Jason Dietrich MD at 17:38 EDT ,
--- NOTE | 2024-03-23 16:02 | EDS_ITS ---
HPI History of Present Illness Chief Complaint: Fall Detail of Chief Complaint: Patient fell injuring her left wrist and left hip Informant: patient Onset/Context/Timing Onset: Hours Mechanism/Context: Fall Location of pain/injuries: Left wrist and Left hip Quality of Pain: Dull and Aching Location: Left wrist and hip Current Severity: Mild Maximum Severity: Severe Worsened by: Attempt to move fingers or move left lower extremity Relieved by: Nothing Associated Symptoms Associated Symptoms: Positive for Loss of function and Inability to ambulate; Negative for Weakness, Loss of consciousness or Amnesia Length of loss of consciousness: None Narrative Narrative: Patient is a 63-year-old woman. She has history of diabetes, hypertension, peripheral neuropathy, anxiety and depression who was checking the yard because she had to take her dog to the vet. She was checking to see if any other animals well. She fell. She laid on her left side. She landed with her left upper extremity outstretched. She noted that there was swelling and deformity to her left wrist. She was unable to use her left leg and complains of pain in the left inguinal area. She did bump her head. She is on no antithrombotic or anticoagulant. She had no LOC and was not dazed. She denies headache. She denies ringing or ears or decreased hearing. She denies visual disturbance. She denies neck pain. She had recent surgery, 1 month ago. She is in a stiff collar. She denies change in voice. She denies cardiac respiratory symptoms. Denies abdominal pain. She has no worsening lower back pain from baseline. She has numbness in her feet due to peripheral neuropathy. Prior similar symptoms: No Recent Illness/Hospitalization: Yes [facility] Home Medications ?Medication ?Instructions ?Recorded ?Last Taken ?Type albuterol sulfate 90 mcg/actuation 6.7 g inhalation DAILY PRN 10/25/13 Unknown History aerosol inhaler SHORTNESS OF BREATH atenolol 25 mg tablet 25 mg PO DAILY BLOOD PRESSURE 10/25/13 03/23/24 History duloxetine 30 mg capsule,delayed 30 mg PO BID DEPRESSION 10/25/13 03/23/24 History release omeprazole 40 mg capsule,delayed 40 mg PO DAILY ACID REFLUX 10/25/13 03/23/24 History release gabapentin 800 mg tablet 800 mg PO TID NERVE PAIN 05/31/20 03/23/24 History insulin glargine U-300 conc 300 28 unit subcut QHS BLOOD SUGARS 05/31/20 03/22/24 History unit/mL (1.5 mL) subcutaneous pen lisinopril 5 mg tablet 5 mg PO DAILY BLOOD PRESSURE 05/31/20 03/23/24 History simvastatin 20 mg tablet 20 mg PO QHS CHOLESTEROL 05/31/20 03/22/24 History sitagliptin phos 50 mg-metformin 1 tab PO DAILY BLOOD SUGARS 05/31/20 03/23/24 History ER 1,000 mg tablet,extend rel 24h mp oxycodone 5 mg tablet 5 mg PO Q6H PRN PAIN 03/23/24 03/23/24 History oxycodone-acetaminophen 5 mg-325 1 tab PO Q6H PRN PRN pain 5 days 03/23/24 Unknown Rx mg tablet #20 TABLETS tizanidine 4 mg tablet 4 mg PO TID MUSCLE RELAXER 03/23/24 03/23/24 History Allergy/AdvReac Type Severity Reaction Status Date / Time morphine Allergy Hives Verified 03/23/24 15:45 hydrocodone bitartrate (From AdvReac Nausea Verified 03/23/24 15:45 Vicodin) Family History Mother Hypertension Arthritis Surgical History History of hysterectomy H/O right knee surgery Social History Smoking Status: Current every day smoker tobacco type: cigarettes ROS ROS ED Constitutional Constitutional ED: Denies chills, fever(s) or subjective Eyes Eyes: Denies blurry vision or change in vision ENT ENT ED: Denies ear pain, rhinorrhea or sore throat Cardiovascular Cardiovascular: Denies chest pain or palpitations Respiratory/Chest Respiratory/Chest: Denies cough, dyspnea or dyspnea on exertion Gastrointestinal Gastrointestinal: Denies abdominal pain, nausea or vomiting Genitourinary Genitourinary ED: Denies dysuria, hematuria or urinary frequency Musculoskeletal Musculoskeletal: Reports back pain; Denies arthralgias, myalgias, neck pain or other Integumentary Denies rash Neurologic Neurologic: Denies headache(s) or weakness Psychiatric Psychiatric: Reports anxiety Endocrine Endocrinology: Denies cold intolerance or heat intolerance Hematologic/Lymphatic Hematologic/Lymphatic: Denies easy bleeding or easy bruising EXAM Physical Exam Const Vital Signs: 03/23/24 15:45 03/23/24 16:01 03/23/24 17:44 Temperature 97.6 F L Temperature Source Temporal Pulse Rate 58 L 71 Respiratory Rate 16 16 Respiratory Effort Normal Respiratory Depth Normal Blood Pressure 109/67 151/71 H Blood Pressure Mean 81 97 Pulse Ox 97 96 97 Oxygen Delivery Method Room Air Room Air Room Air 03/23/24 19:00 03/23/24 19:23 Temperature 97.6 F L Temperature Source Pulse Rate 60 60 Respiratory Rate 18 18 Respiratory Effort Respiratory Depth Blood Pressure 125/73 H 125/73 H Blood Pressure Mean 90 90 Pulse Ox 95 95 Oxygen Delivery Method Room Air Positive well nourished and well developed Constitutional Narrative: Vital signs unremarkable. She does appear uncomfortable. General Appearance ED: well developed; Negative for NAD HEENT Reports TM's clear HEENT Narrative: There is no evidence of dental trauma. atraumatic; Negative for tenderness Nose: Negative for septum abnormal Tympanic Membrane ED: Yes TM's clear Eyes PERRL and EOMs intact bilaterally Neck No full ROM Neck Narrative: Patient remains in the collar she was placed postoperatively. She has no pain outpatient of the posterior neck. Trachea is midline. Chest Wall inspection of chest normal and palpation of chest normal Resp normal respiratory effort and clear to auscultation bilaterally Cardio regular rhythm, S1 normal heart sound, S2 normal heart sound and no murmurs Rate: regular rate GI normal to inspection, nondistended, normoactive bowel sounds, non-distended and no masses Back/Spine no thoracic nor lumbar tenderness Back/Spine Narrative: Unable to roll patient because of pain in her left wrist and hip. She had no obvious deformity with palpation nor that she have any pain. Extremity Negative for normal to inspection or full ROM Extremity Narrative: There is swelling with deformity of the left wrist. Median, radial and ulnar function intact. There is no pain ovation of the lateral medial epicondyle, lateral process. There is no pain ovation of the proximal humerus. No pain ovation of the clavicle or AC joint on the left. Patient's left lower extremity is in flexion at the knee and hip. Attempt to move her leg causes her severe pain in the inguinal area. She does have a palpable DP pulse. There is no neurologic deficit in the right or left lower extremity. General Extremety ED: Yes deformity General Extremity: deformity Neuro oriented x3, CN's II-XII intact bilaterally, moves all extremities, no focal motor deficits and no sensory deficits noted Sensorium / Orientation: alert Psych Negative for mental status grossly normal Mood & Affect: anxious Skin no rashes or lesions noted, no wounds, skin turgor normal and no jaundice PROC Procedures Upper Extremity Splints Upper Extremity Splint: Plaster and - (AP short arm) Splint Fabrication: Fabricated Location: Left Other Procedures Procedure(s): Close reduction Colles' fracture left wrist: Patient's wrist was cleansed with alcohol. Hematoma block was placed. Patient tolerated procedure. Patient was placed in finger traps. Every 5 to 10 minutes 4 pounds of weights were added. Patient had good length after 40 minutes. There was slight ma nipulation while in the finger traps. There is minimal step-off appreciated. Patient was removed from the finger traps. The fracture was recreated with successful clinical reduction of the fracture. Patient was placed in a short arm AP plaster splint that was fabricated by me. X-ray was obtained to assess reduction to determine if it is adequate. MDM MDM MDM Narrative Medical decision making narrative: Per [place] CT head rule imaging of the head is not indicated. Since patient has no neck pain remained in her collar when she fell will not obtain imaging of her neck. Will obtain imaging of her wrist and hip. Differential would be contusion versus fracture versus fracture or dislocation. Patient was medicated with Dilaudid which she has had in the past. She received ketamine and routes. In my opinion patient will need operative clearance therefore will obtain appr opriate blood work, EKG and chest x-ray. Lab Data Attestation: I reviewed the patient's lab results. Lab results narrative: White count is slightly elevated. There is no shift. H&H is normal with normal indices. Basic metabolic panel with slight elevation in glucose of 117 with normal CO2 and anion gap. Labs: Laboratory Results - last 24 hr 03/23/24 16:00 WBC 12.6 H RBC 4.92 Hgb 14.1 Hct 43.9 MCV 89.2 MCH 28.7 MCHC 32.1 RDW Std Deviation 41.8 RDW Coeff of Jesse 12.9 Plt Count 441 MPV 9.6 Immature Gran % (Auto) 0.500 Neut % (Auto) 43.8 L Lymph % (Auto) 45.8 H Camp % (Auto) 8.2 Eos % (Auto) 0.9 Baso % (Auto) 0.8 Absolute Neuts (auto) 5.5 Absolute Lymphs (auto) 5.78 H Nucleated RBC % 0 Differential Comment SCANNED Sodium 139 Potassium 3.7 Chloride 105 Carbon Dioxide 26.0 Anion Gap 8 BUN 8 Creatinine 0.66 Estim Creat Clear Calc 116.11 Est GFR (MDRD) Af Amer 117 Est GFR (MDRD) Non-Af 97 BUN/Creatinine Ratio 12.2 Glucose 117 H Calcium 9.6 Radiography Chest X-Ray - ED: Read by ED Physician (Three-view x-ray of the wrist reveals a Colles' fracture. She has a transverse extra-articular distal ulnar fracture with mild displacement and volar apex angulation. There appears to be loss of volar tilt. There is also a avulsion fracture of the ulnar styloid. Fracture is consistent with a Col) and - (Three-view x-ray of the hip reveals no evidence of fracture of the femur, femoral neck, inner troches or pelvis. This was independently reviewed and interpreted by me.) Diagnostic Testing: Clinical Impression(s) from Imaging Studies Hip/Pelvis X-Ray 03/23/24 16:01 IMPRESSION: No acute radiographic abnormalities. Electronically Signed: aJson Dietrich MD at 17:38 EDT Reading Location ID and State: [facility] / [place] Tel , Service support , Wrist X-Ray 03/23/24 16:01 IMPRESSION: Acute comminuted and and mildly displaced distal radial impaction fracture. Acute ulnar styloid avulsion fracture. Electronically Signed: Jason Dietrich MD at 17:40 EDT Reading Location ID and State: [facility] / [place] Tel , Service support , Chest X-Ray 03/23/24 16:35 IMPRESSION: No acute radiographic abnormalities. Electronically Signed: Jason Dietrich MD at 17:41 EDT Reading Location ID and State: [facility] / [place] Tel , Service support , EKG Initial EKG: Attestation: I personally reviewed and interpreted this EKG as follows: Interpretation: Sinus Rhythm (There is significant artifact. EKG is normal. Rate is 60. NH interval 204 ms. Cures duration 78 ms. QT duration 4 to 40 ms. [place] is normal.) Management Discussion w/another healthcare provider: Audio Visual Production Specialist (Dr. Lorenzo was made aware. He was told patient's history, active fracture was reduced and placed in a short arm AP plaster splint. Agrees with follow-up at the office.) Treatment and Re-Evaluation Narrative: Nurses presently determine if patient is able to bear weight. If she is not able to bear weight will contact orthopedist and hospitalist for admission and MRI in the morning to rule out occult fracture. Three-view x-ray of the left wrist was obtained status post reduction. There is loss of volar tilt. The fracture is no longer displaced or angulated. Splint is noted. There is independent reviewed interpreted by me at 08/26/2006. Patient is able to ambulate without difficulty. Therefore will discharge to home and have her follow-up with Dr. Lorenzo Discharge Plan Triage Chief Complaint: Fall ED Provider: Mirza Ramirez Dx/Rx/DC Orders Clinical Impression: Displaced fracture of distal end of left radius, Diabetes mellitus, HTN (hypertension), Peripheral neuropathy, Closed fracture of styloid process of left ulna, Contusion of left hip, initial encounter, Injury due to fall, Contusion of scalp Instructions: ED Colles Fracture, Reduction Required Prescriptions: New oxycodone-acetaminophen 5-325 mg tablet 1 tab PO Q6H PRN PRN (Reason: pain) 5 Days Qty: 20 0RF No Action atenolol 25 MG tablet 25 mg PO DAILY omeprazole 40 MG capsule 40 mg PO DAILY albuterol sulfate 6.7 GM HFA aerosol inhaler 6.7 g inhalation DAILY PRN (Reason: SHORTNESS OF BREATH ) duloxetine 30 MG capsule 30 mg PO BID gabapentin 800 MG tablet 800 mg PO TID simvastatin 20 MG tablet 20 mg PO QHS lisinopril 5 MG tablet 5 mg PO DAILY sitagliptin phos-metformin 1 EACH tablet, ER multiphase 24 hr 1 tab PO DAILY insulin glargine U-300 conc 300 UNIT/ML insulin pen 28 unit subcut QHS oxycodone 5 mg tablet 5 mg PO Q6H PRN (Reason: PAIN ) tizanidine 4 mg tablet 4 mg PO TID Primary Care Provider: Sergio Tamayo Referrals: Connor Trent MD [Med Staff - Active Staff] - 5-7 Days Sergio Tamayo DO [Primary Care Provider] - Activity Restrictions/Additional Instructions: 1. Keep splint absolute clean and dry 2. Must elevate wrist. Definition of elevation his wrist above your nose 3. Apply ice 6-10 times a day 4. Take pain medicine as prescribed for pain Print Language: Luxembourgish Disposition Disposition: Home, Self Care
[2024-03-23] MEDS: Ondansetron 4 MG/2 ML Vial IV (16:06)
[2024-03-23] MEDS: HYDROmorphone 1 MG/ML Syringe 0.5 MG IV (16:06)
[2024-03-23 16:22] LABS: Absolute Lymphocyte Count 5.78 X10^3/uL (0.83-4.51); Absolute Neutrophil Count 5.5 X10^3/uL (2.0-7.7); Basophil% 0.8 % (0-1); Eosinophil# 0.11 X10^3/uL; Eosinophils% 0.9 % (0-5); Hematocrit 43.9 % (37-47); Hemoglobin 14.1 g/dL (12.0-15.0); Lymphocyte # 5.78 X10^3/ul (0.83-4.51); Lymphocyte % 45.8 % (19-41); Mean Corp Hgb Conc 32.1 g/dL (32-36); Mean Corpuscular Hgb 28.7 pg (27.0-32.0); Mean Corpuscular Volume 89.2 fL (81-99); Mean Platelet Vol. 9.6 fl (6.2-12.0); Monocyte# 1.04 X10^3/uL; Monocyte% 8.2 % (0-10); NRBC Flagged by Analyzer 0 % (0-5); Neutrophil # 5.53 X10^3/uL (2.7-7.7); Neutrophil % 43.8 % (47-70); POSITIVE DIFFERENTIAL YES; Platelet Count 441 K/mm3 (150-450); RBC Distribution Width CV 12.9 % (11.6-14.6); RBC Distribution Width SD 41.8 fl (35.1-43.9); Red Blood Count 4.92 M/mm3 (4.2-5.4); White Blood Count 12.6 K/mm3 (4.4-11.0)
[2024-03-23 16:25] LABS: Differential Indicated SCAN CRITERIA MET
--- NOTE | 2024-03-23 16:35 | RAD_ITS ---
INDICATION: preop EXAMINATION/TECHNIQUE: X-RAY - XR Chest 1 View COMPARISON: None. FINDINGS: The lungs are clear. Tortuous and calcified thoracic aorta. The heart is mildly enlarged. No pleural effusion or pneumothorax. Degenerative changes of the thoracic spine. RAD/Chest 1 View (Portable) IMPRESSION: No acute radiographic abnormalities. Electronically Signed: Jason Dietrich MD at 17:41 EDT ,
[2024-03-23 16:40] LABS: Anion Gap 8 (5-15); BUN 8 mg/dL (7-18); BUN/Creat Ratio 12.2 RATIO (10-20); Calcium,Total 9.6 mg/dL (8.5-10.1); Chloride 105 mmol/L (98-107); Creatinine, Serum 0.66 mg/dL (0.55-1.02); EST Glomerular Filtration Rate 97 mL/min (>60); Est Glom Filt Rate - Afr Amer 117 mL/min (>60); Estimated Creatinine Clearance 116.11 ml/min; Glucose 117 mg/dL (74-106); Potassium 3.7 mmol/L (3.5-5.1); Sodium Level 139 mmol/L (136-145)
[2024-03-23 16:54] LABS: Differential Comment SCANNED
[2024-03-23] MEDS: Lidocaine 1% (20 ml mdv) 20 ML Vial 10 ML INFILT (17:05)
[2024-03-23] MEDS: HYDROmorphone 0.5 MG/0.5 ML SYRINGE IV ×2 (17:29→18:55)
[2024-03-23 17:44] VITALS: BP 151/71; PULSE 71; RESP 16; O2SAT 97
--- NOTE | 2024-03-23 18:47 | RAD_ITS ---
INDICATION: Injury/Pain -- Postreduction EXAMINATION/TECHNIQUE: X-RAY - LEFT XR Wrist Min 3 Views COMPARISON: 03/23/2024. FINDINGS: See impression RAD/Wrist min 3 Views IMPRESSION: Status post closed reduction and splinting for previously described distal radial and ulnar fractures with improved alignment. Electronically Signed: Jason Dietrich MD at 19:25 EDT ,
[2024-03-23 19:00] VITALS: BP 125/73; PULSE 60; RESP 18; O2SAT 95
[2024-03-23 19:23] VITALS: BP 125/73; PULSE 60; RESP 18; TEMP 36.4; O2SAT 95
== END 2024-03-23 19:35 | disposition home or self-care (01) ==
PROVIDERS: Emergency Provider Emergency Medicine; PCP Family Medicine; Visit Provider Emergency Medicine
DX: S52.532A Colles' fracture of left radius, initial encounter for closed fracture (principal); E11.42 Type 2 diabetes mellitus with diabetic polyneuropathy; Z79.4 Long term (current) use of insulin; S52.612A Displaced fracture of left ulna styloid process, initial encounter for closed fracture; S70.02XA Contusion of left hip, initial encounter; S00.03XA Contusion of scalp, initial encounter; W01.0XXA Fall on same level from slipping, tripping and stumbling without subsequent striking against object, initial encounter; Y93.89 Activity, other specified; Y99.8 Other external cause status; Y92.096 Garden or yard of other non-institutional residence as the place of occurrence of the external cause; I10 Essential (primary) hypertension; F17.210 Nicotine dependence, cigarettes, uncomplicated; Z79.84 Long term (current) use of oral hypoglycemic drugs; Z79.899 Other long term (current) drug therapy
CPT/HCPCS: 25605; 71045; 73110; 73502; 80048; 85025; 93005; 96374; 96375; 96376; 99285; J7030; A4216; J2405

== ENCOUNTER → 2024-05-14 | Outpatient (CLI) | payer MEDICARE, MEDICAID, SELFPAY ==
--- NOTE | 2024-05-14 10:10 | RAD_ITS ---
EXAM: XR LEFT WRIST COMPLETE, 3 OR MORE VIEWS CLINICAL INDICATION: distal radius fracture TECHNIQUE: Frontal, lateral and oblique views of the left wrist. COMPARISON: Casted views April 30, 2024. FINDINGS: BONES/JOINTS: There is increased healing appearance with some bridging callus at the distal radius and less visible lucent fracture line along the dorsum of the bone and decreased vertical lucency extending into the articular surface. Persistent offset at the medial lateral distal radius with incomplete healing and remodeling. Preservation of the joint space. SOFT TISSUES: Unremarkable. No soft tissue swelling or gas. No radiopaque foreign body. RAD/Wrist min 3 Views IMPRESSION: Interval improved appearance with partial fracture healing and mild increased callus. Electronically Signed: Karuna Way MD at 1:55 EDT ,
== END | disposition home or self-care (01) ==
LOC: MTRAD 10:07
PROVIDERS: PCP Family Medicine; Referring Provider Student in an Organized Health Care Education/Training Program; Visit Provider Student in an Organized Health Care Education/Training Program
DX: S52.502A Unspecified fracture of the lower end of left radius, initial encounter for closed fracture (principal); X58.XXXA Exposure to other specified factors, initial encounter
CPT/HCPCS: 73110

== ENCOUNTER 2024-12-07 10:00 | Outpatient (RCR) | payer MEDICARE, MEDICAID, SELFPAY ==
--- NOTE | 2024-11-02 16:58 | HP.PTEVAL_ITS ---
Patient's Visit Information Visit Information Visit Information: PATTY BOLDEN is a 64 year old F referred to Physical Therapy by Dr. Pedro Drew DO with a diagnosis of R nondisplaced femur fx, DOS: 10/01/24. Date of Evaluation: 11/02/24 Physical Therapist: Seamus Roa DPT Visit Plan Frequency: 2x /Week Duration: 8 weeks Plan: Keep an eye on her proximal lateral incision. Not fully healed yet. 1) RLE strengthening 2) gait progression 3) static and dynamic balance 4) stair negotiation Subjective Subjective: Pt is here today for her initial evaluation with diagnosis of non displaced femur fx. DOS: 10/01/24. Pt. arrives using SPC. Pt. reports falling at home on to her R hip and ultimately having to have a IM nailing. Pt. reports overall doing better. She had HH PT for a few weeks. She was doing supine and sink exercises with good tolerance. Pt. does not drive and does not work. Pt. has however had a few falls over the past few years. Pt. has been doing her exercises with good tolerance. Pt. is sleeping well, but has to have her leg elevated. Pt. reports soreness in her tight and lateral thigh at times. Pt. is hopeful to increase her balance, strength and mobility in order to get back to all previous levels of activities. Pain R lateral hip: Pain Intensity (Out of 10): 3 Pain Intensity Range: 1 and 5 Objective Objective: POSTURE: Pt. has increased wt. shift to L side in stance. Pt. use SPC to assist with stability. Normal PETEY noted. Slightly flexed posture noted. PALPATION: Pt. has increased lateral hip tenderness. Pt. does have a healing superior incision. No drained noted, but is not fully healed. Pt. does have marked crust at this incision and is moist around the crust. No drained noted. I did talk to her about talking with physician about this area. Pt. reports understanding and plans to look into if worsening or not healing. NEURO: Pt. has normal sensation in BLEs. Pt. has normal DTR of BLEs. Pt. is able to rise on heels and toes with use of balance aide. ROM: PROM: R hip: flexion 90deg mild increase NW, abd 20deg mild increase NW, ER supine 30deg, IR not tested. MMT: RLE: knee: ext 21.3#, flexion 17.4#; hip: flexion 11.1#, ext 10.3# LLE: knee: ext 36.7#, flexion 28.5#, hip: flexion 19.0#, ext 17.3# repeated sit to stand with use of UEs 8. GAIT: PT. ambulates with SPC, but has decreased bilateral step length. Pt. has increased R lateral lean during R stance phase. Pt. reports mild increase in R lateral hip pain during stance phase. Balance/Special Test Scores Lower Extremity Functional Score: 28 Goals Goal 1:: LTG: Pt. to be I with HEP. Goal Time Frame: 4-6 Weeks Goal 2:: LTG: Pt. to have 5/5 strength throughout RLE. Goal Time Frame: 4-6 Weeks Goal 3:: LTG: Pt. be able to ambulate without issues with SPC with normal gait pattern. Goal Time Frame: 6-8 Weeks Goal 4:: LTG: Pt. to complete 30sec sit to stand rep test with 15 reps indicating increased functional strength. Goal Time Frame: 6-8 Weeks Goal 5:: LTG: Pt. to complete TUG with time less that 15 seconds with use of SPC. Goal Time Frame: 6-8 Weeks Rehabilitation Potential Physical Therapy Diagnosis: Pt. has signs and symptoms consistent with R nondisplaced femur fx, DOS: 10/01/24. Pt. has marked hypomobility, weakness, difficulty walking and decreased functional mobility. Rehabilitation Potential: Good Anticipated Interventions Patient/Client Instruction: Educate patient on: Condition, Plan of Care, Risk Factors and Benefits of Fitness Program For the Purpose of:: To improve decision making, To facilitate caregiver knowledge, To improve self management, To prevent re-injury, To improve ability to perform tasks related to life management and To improve tolerance to ADL's Therapeutic Exercise to Include: Strength training, Power training, Endurance training, Balance training, Postural training, Flexibilty training, Gait and locomotor training, Passive ROM, Active ROM and Dynamic Lumbar Stabilization For the Purpose of:: To decrease pain, To decrease swelling/inflammation, To increase ROM, To improve nutrient delivery to tissue, To increase oxygenation perfusion, To improve muscle performance and motor function, To improve ability to perform ADL's, To improve ability of physical actions for home/community/work/leisure, To improve gait and locomotor functions, To improve health of tissue, To decrease soft tissue restriction and To increase flexibility/ROM Text: Thank you for the opportunity to evaluate your patient. For Medicare and Medicare HMO plans, please review the plan of care and approve it. It will need to be FAXED BACK to us at [phone] for Medicare purposes. For Medicare only, by signing this I certify the plan of care. Please let me know if there are questions or concerns regarding this plan of care. Physician Signature: Date:
--- NOTE | 2024-12-07 10:32 | HP.PTDCSUM ---
Discharge Summary D/C summary: It has been my pleasure to treat PATTY BOLDEN referred by Dr. Pedro Drew DO, with the diagnosis of R nondisplaced femur fx, DOS: 10/01/24 for a total of 5 visit(s). Discharge Date: 12/07/24 Please see the following information for a summary of their discharge status. Subjective Subjective: Pt. reports having an infection in her hip, but had it debrided and started on some medication. She is doing better. Pt. reports no pain currently. Pt. is using SPC for balance with gait. Pt. reports being 80% better overall. She reports no pain. HEP compliant. Pain R lateral hip: Pain Intensity (Out of 10): 0 Overall Improvement % Improvement: 80 Objective Objective/Function: GAIT: Pt. is ambulating well with SPC, She does have slight increased R lateral lean during R stance phase without use of cane. MMT: LLE: Knee: ext 18.7#, flexion 13.8#; hip: flexion 16.4#, abd 15# no issues RLE: knee: ext 20#, flexion 15.7#; hip: flexion 10.5#, abd 8# increase NW 30sec sit to stand rep test 11 with use of UEs. TUG without AD 14.8sec Pt. is doing better. She still has some weakness with hip abd and flexion. Due to this weakness she has some increased lateral lean during R stance phase. I talked with her about this. She would like to continue with her exercises on her own at this point in time. I urged her to be very consistent with her strengthening pt. reports understanding and consents. She is to follow up with physician in ~2 weeks. Goals Goal 1:: LTG: Pt. to be I with HEP. Goal Progress: Goal Met Goal 2:: LTG: Pt. to have 5/5 strength throughout RLE. Goal Progress: Progressing Goal 3:: LTG: Pt. be able to ambulate without issues with SPC with normal gait pattern. Goal Progress: Progressing Goal 4:: LTG: Pt. to complete 30sec sit to stand rep test with 15 reps indicating increased functional strength. Goal Progress: Progressing Goal 5:: LTG: Pt. to complete TUG with time less that 15 seconds with use of SPC. Goal Progress: Goal Met Plan Plan: PT. to be DC from PT at this point in time. D/C Information Discharge Comments: Pt. is doing well, but still has some weakness. She desires to complete her exercises on her own at this point in time. I suggest that she focus on hip abd and extension strengthening. Pt. agrees to be consistent with her exercises. d/c sentence: If there are questions or concerns regarding this patient's physical therapy, please feel free to call me at [phone]. Thank you for the referral of this patient. Sincerely, Seamus Roa, DPT Balance/Gait/Functional tests Balance/Special Test Scores Lower Extremity Functional Score: 46 TUG Test Time Seconds: 14.8 Tug Test: <20 sec.=mostly independent 30 Second Chair Rise Test Seconds: 11 Improvement % Improvement: 80
== END 2024-12-07 19:00 | disposition home or self-care (01) ==
LOC: PT 10:00
PROVIDERS: PCP Family Medicine; Referring Provider Student in an Organized Health Care Education/Training Program; Visit Provider Student in an Organized Health Care Education/Training Program
DX: S72.144D Nondisplaced intertrochanteric fracture of right femur, subsequent encounter for closed fracture with routine healing (principal)
CPT/HCPCS: 97110; 97161; 97530